=== PATIENT | male | born 1950 | race Caucasian/White ===

== ENCOUNTER 2020-01-16 06:43 | Outpatient (CLI) | payer MEDICARE, SELFPAY ==
--- NOTE | ~2020-01-16 | MR_ITS ---
EXAMINATION: MR brain/brain stem wo/w con DATE: 01/16/2020 08:03 INDICATION: Unspecified visual disturbance. TECHNIQUE: Magnetic resonance imaging (MRI) of the brain and brainstem was performed without and with 18 mL MultiHance intravenous contrast. Sequences included sagittal and axial T1-weighted FSE, axial diffusion-weighted FS EPI, axial T2*-weighted GRE, axial T2-weighted FLAIR Propeller, and axial T2-we ighted Propeller. Postcontrast sequences included axial and coronal T1-weighted FSE. Apparent diffusi on coefficient (ADC) maps were created. COMPARISON: CT sinuses 05/23/2008 FINDINGS: There are scattered areas of nonspecific increased T2-weighted signal intensity in the cere bral white matter, which is within normal limits for the patient's age. There is no intracranial hemo rrhage, acute infarction, or abnormal intracranial mass lesion. The ventricles are normal in size. Th e orbits are normal. There is mild mucosal thickening in the paranasal sinuses. The mastoid air cells are normal. IMPRESSION: 1. Normal aging brain. Reviewed, dictated and finalized at location A. IMPRESSION: 1. Normal aging brain.
[2020-01-16 07:32] LABS: Estimated Glomerular Filt Rate > 60
== END 2020-01-16 06:44 | disposition home or self-care (01) ==
LOC: ANHIMG 06:54
PROVIDERS: PCP Family Medicine; Visit Provider Physician Assistant
DX: H53.9 Unspecified visual disturbance (principal)
CPT/HCPCS: 36415; 70553; A9577

== ENCOUNTER 2022-05-12 09:37 | Outpatient (CLI) | payer MEDICARE, SELFPAY ==
--- NOTE | 2022-05-12 11:00 | NEURO_ITS ---
Impression: Patient complaining of numbness in right foot. History of right sciatica. 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 # Clinical correlation recommended. Nerve Conduction Studies Anti Sensory Summary Table Stim Site NR Peak (ms) P-T Amp (?V) Site1 Site2 Delta-P (ms) Dist (cm) Matteo (m/s) Right Sup Fibular Anti Sensory (Ant Lat Mall) 14 cm 4.5 4.6 14 cm Ant Lat Mall 4.5 16.0 36 Right Sural Anti Sensory (Lat Mall) Calf 4.2 7.6 Calf Lat Mall 4.2 16.0 38 Motor Summary Table Stim Site NR Onset (ms) O-P Amp (mV) Site1 Site2 Delta-0 (ms) Dist (cm) Matteo (m/s) Right Peroneal Motor (Vastus Med) Ankle 5.6 0.5 Popit Ankle 11.4 44.0 39 Popit 17.0 0.3 B Fib Ankle 11.5 34.0 30 B Fib 17.1 0.2 Right Tibial Motor (Abd Ketn Brev) Ankle 5.0 5.4 Knee Ankle 10.7 39.5 37 Knee 15.7 4.1 F Wave Studies NR F-Lat (ms) L-R F-Lat (ms) Right Peroneal (Mrkrs) (EDB) DISPERSED RESPONSE NR Right Tibial (Mrkrs) (Abd Hallucis) 58.49 EMG Side Muscle Nerve Root Ins Act Fibs Amp Dur Recrt Comment Right AntTibialis Dp Br Fibular L4-5 Nml Nml Nml Nml Nml Right Gastroc Tibial S1-2 Nml Nml Nml Nml Reduced Right Fibularis Long Sup Br Fibular L5-S1 Nml Nml Nml Nml Nml Right Flex Dig Long Tibial L5-S2 Nml Nml Nml Nml Reduced Right Ext Dig Brev Dp Br Fibular L5, S1 Nml Nml Nml Nml Reduced MTDD
== END 2022-05-12 09:38 | disposition home or self-care (01) ==
LOC: ANHNEURO 09:39
PROVIDERS: PCP Family Medicine; Visit Provider Family Medicine
DX: R20.8 Other disturbances of skin sensation (principal); G57.81 Other specified mononeuropathies of right lower limb
CPT/HCPCS: 95886; 95908

== ENCOUNTER → 2022-06-10 07:09 | Outpatient (CLI) | payer MEDICARE, SELFPAY ==
--- NOTE | ~2022-06-10 | MR_ITS ---
EXAMINATION: MR lumbar spine wo con DATE: 06/10/2022 07:37 INDICATION: Right foot numbness. TECHNIQUE: Magnetic resonance imaging (MRI) of the lumbar spine was performed without intravenous con trast. Sequences included sagittal T2-weighted FSE, sagittal T2-weighted FS FSE, sagittal T1-weighted FSE, and axial T2-weighted FSE. COMPARISON: None FINDINGS: There is 10 degrees levoscoliosis of lumbar spine. There are Schmorl's nodes at multiple le vels. There is moderately decreased disc height at L3-L4 and L4-L5 and mildly decreased disc height a t L5-S1. The distal spinal cord signal intensity is normal. The conus medullaris is at L1. 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 The following disc levels are specifically discussed: L1-L2: The disc is bulging. There is moderate bilateral facet joint osteoarthritis. There is mild stewart ateral neural foraminal stenosis. There is mild central canal stenosis. L2-L3: The disc is bulging. There is mild bilateral facet joint osteoarthritis. There is mild bilater al neural foraminal stenosis. There is mild central canal stenosis. L3-L4: The disc is bulging and has an annular fissure. There is mild bilateral facet joint osteoarthr itis. There is moderate right and mild left neural foraminal stenosis. There is mild central canal st enosis. L4-L5: The disc is bulging and has an annular fissure. There is moderate bilateral facet joint osteoa rthritis. There is moderate bilateral neural foraminal stenosis. There is mild central canal stenosis . L5-S1: The disc is bulging. There is severe bilateral facet joint osteoarthritis. There is mild bilat eral neural foraminal stenosis. There is mild central canal stenosis. IMPRESSION: 1. Moderate lumbar spondylosis. 2. Lumbar levoscoliosis. Reviewed, dictated and finalized at location A. AND SKIN CLASSER
== END ==
PROVIDERS: PCP Family Medicine; Visit Provider Family Medicine
DX: R20.0 Anesthesia of skin (principal); M47.26 Other spondylosis with radiculopathy, lumbar region; M41.9 Scoliosis, unspecified
CPT/HCPCS: 72148

== ENCOUNTER 2022-10-06 09:53 | Day surgery (SDC) | payer MEDICARE, SELFPAY ==
[2022-10-04 08:35] VITALS: BMI 27.0
--- NOTE | 2022-10-06 07:28 | WPDHPUPDATE1 ---
History and Physical Update Update Date/Time: 10/06/22 07:28 History and Physical has been reviewed, including an updated exam of the patient. There are NO changes in the patient's condition. Risks, benefits, and alternatives have been discussed and questions answered. Patient agrees to proceed with procedure.
[2022-10-06 10:26] VITALS: BP 125/86; PULSE 87; RESP 15; TEMP 37.2; O2SAT 96
[2022-10-06] MEDS: TETRACAINE HCL 0.5% OPHTH SOLN 4 ML BTL 1 DROP AFFCTD EYE ×3 (10:29→10:39)
[2022-10-06 10:34] VITALS: BMI 28.5
[2022-10-06] MEDS: BRIMONIDINE TARTRATE 0.2% OP SOLN 5 ML BTL 1 DROP AFFCTD EYE (11:02)
--- NOTE | 2022-10-06 11:43 | W.PM.PROC2 ---
Procedure Note - Detailed Date of Procedure 10/06/22 Pre-op Diagnosis Posterior Capsular Opacification Left Eye Post-op Diagnosis Same Procedure Performed YAG Laser Capsulotomy [LEFT] eye Surgeon Porter Medina MD Anesthesia Other (Topical) Description of Procedure After appropriate discussion, consent and topical anesthesia, the patient was placed in front of the laser. All settings were checked. The laser procedure was then performed. The patient tolerated the procedure well. Power Level: [4.0mJ] Number of Pulses: 15 Complications None Condition Stable Disposition Same day
== END 2022-10-06 11:10 | disposition home or self-care (01) ==
PROVIDERS: PCP Family Medicine; Visit Provider Student in an Organized Health Care Education/Training Program
PROC: (CPT 66821; principal; 2022-10-06 10:40)
DX: H26.492 Other secondary cataract, left eye (principal)
CPT/HCPCS: 66821

== ENCOUNTER 2022-10-27 08:32 | Day surgery (SDC) | payer MEDICARE, SELFPAY ==
[2022-10-25 10:00] VITALS: BMI 27.0
--- NOTE | 2022-10-27 08:09 | WPDHPUPDATE1 ---
History and Physical Update Update Date/Time: 10/27/22 08:09 History and Physical has been reviewed, including an updated exam of the patient. There are NO changes in the patient's condition. Risks, benefits, and alternatives have been discussed and questions answered. Patient agrees to proceed with procedure.
--- NOTE | 2022-10-27 09:56 | WPDANESEPPF ---
Anes - Initial Pre Proc Eval Procedure: Operation Date: 10/27/22 10:30 Proposed Procedures p Cataract Extraction with Lens Implant-Right Eye - Porter Medina MD Date/Time: 10/27/22 09:56 Surgeon: Porter Medina MD Pre Op Diagnosis: Age Related Nuclear Cataract Right Eye Patient Data Age: 72 Gender: M Height: 1.8 m Weight: 88 kg Allergies Allergy/AdvReac Type Severity Reaction Status Date / Time No Known Allergies Allergy Verified 10/25/22 08:49 Home Medications Medication Instructions Recorded Confirmed Type aspirin 81 mg tablet,delayed 81 mg PO DAILY 01/04/20 10/25/22 History release (Aspir-) atorvastatin 20 mg tablet 20 mg PO DAILY 01/04/20 10/25/22 History lisinopril 20 mg tablet 20 mg PO DAILY 01/04/20 10/25/22 History omeprazole 20 mg capsule,delayed 20 mg PO DAILY 01/04/20 10/25/22 History release Patient hx anesthesia problems: none Family hx anesthesia problems: none Results Review: All pre-operative results and documents have been reviewed as part of the pre-operative evaluation. [facility] Past Medical History Medical History (Updated 10/27/22 @ 09:58 by Asher Mera MD) Anxiety Atherosclerotic heart disease of [place] coronary artery with other forms of angina pectoris Back Pain Barretts esophagus Essential (primary) hypertension Ischemic cardiomyopathy Metabolic syndrome Mixed hyperlipidemia Overweight (BMI 25.0-29.9) Prediabetes Surgical History Surgical History H/O knee surgery (~2018) R TKA H/O neck surgery (~2017) ACDIF S/P CABG x 4 (~10/2015) Family History Family History Father Family history of cardiovascular disease Sibling Family history of cardiovascular disease Social History Social History Smoking status: Never smoker Second hand tobacco smoke exposure: No Smoking end date: 05/30/92 Alcohol intake: current Substance use: never Substance use type: does not use Living arrangements: with family Spiritual care concerns: No Anes - Eval Final PreProcedure Day of Procedure 10/27/22 09:56 Patient weight: overweight Heart: regular rate and rhythm Lungs: clear to auscultation and normal air movement Airway: Mallampati scale class II Neurological: alert and oriented Last oral intake: >/= 8 hours ASA classification: III Emergent: no Anesthetic plan: proceed Anesthesia type and monitoring: monitored anesthesia care Results Review: All pre-operative results and documents have been reviewed as part of the pre-operative evaluation. Informed Consent: The patient's anesthetic plan and its attendant risks and benefits were discussed with the patient/family/POA. Questions were solicited and answers provided to the satisfaction of the patient/family/POA.
[2022-10-27 10:00] VITALS: BP 124/96; PULSE 73; RESP 20; TEMP 37.1; O2SAT 96
[2022-10-27] MEDS: OFLOXACIN 0.3% OPHTH SOLN 5 ML BTL 1 DROP AFFCTD EYE (10:30)
[2022-10-27] MEDS: TETRACAINE HCL 0.5% OPHTH SOLN 4 ML BTL 1 DROP AFFCTD EYE ×3 (10:30→10:40)
[2022-10-27] MEDS: LIDOCAINE HCL 2% JELLY 5 ML TUBE 1 APPLIC AFFCTD EYE (10:50)
[2022-10-27] MEDS: HOME MEDICATION 1 EACH AFFCTD EYE (11:29)
[2022-10-27] MEDS: NEOMYCIN/POLYMYXIN/DEXAMETH OP OINT 3.5 GM TUBE 1 APPLIC AFFCTD EYE (11:29)
[2022-10-27] MEDS: LIDOCAINE HCL 1% PF INJ 5 ML VIAL 1 ML INTRAOCULA (11:29)
[2022-10-27 11:37] VITALS: BP 132/72; PULSE 67; RESP 16; O2SAT 99
[2022-10-27] MEDS: acetaZOLAMIDE TAB 250 MG TABLET PO (11:47)
--- NOTE | 2022-10-27 11:53 | WPDANESPN ---
Anes - Prog Note Post-Op Date/Time: 10/27/22 11:53 Cardiovascular status: normal Respiratory status: normal Airway patency: baseline Mental status: baseline Post-Op hydration status: normal Vital Signs: Last Vital Signs Temp 37.1 C 10/27/22 10:00 Pulse 67 10/27/22 11:37 Resp 16 10/27/22 11:37 BP 132/72 10/27/22 11:37 Pulse Ox 99 10/27/22 11:37 O2 Del Method Room Air 10/27/22 11:37 Pain Score (VAS): 0 Post-procedural complaints: none Patient Feedback: Patient satisfied with anesthetic care.
--- NOTE | 2022-10-27 12:03 | P.OP_ITS ---
Procedure Note - Detailed Date of Procedure 10/27/22 Pre-op Diagnosis 1) Age Related Nuclear Cataract Right Eye 2) Miotic pupillary cyst Post-op Diagnosis Same Procedure Performed Complex Cataract Extraction (by Phacoemulsification) and lntraocular Lens Implant Surgeon Porter Medina MD Anesthesia MAC Description of Procedure The eye was anesthetized with topical 0.75% bupivacaine. After intravenous sedation and placement of monitors, the patient was prepped and draped in the usual sterile manner. A lid speculum was placed. A paracentesis was made, and preservative free 1% lidocaine was instilled in the anterior chamber. The anterior chamber was then filled with Viscoat viscoelastic and a malyugin ring w as placed. A antonio keratome was used to create the wound. Continuous tear anterior capsulotomy was performed. The lens was hydro dissected before being removed with phacoemulsification. The remaining lenticular cortex was removed with aspiration. The capsular bag was polished and filled with viscoelastic material. An intraocular lens was chosen, inspected, irrigated and placed within the capsular bag where it was seen to be centered and stable. The Malyugin ring was removed and viscoelastic material was aspirated. The wound was closed and found to be watertight. Ciloxan drops were placed in the eye. The speculum was removed. A Chen shield was applied. The patient tolerated the procedure well and left the operating room in satisfactory condition. Implants See chart Complications None Condition Stable Disposition Same day
== END 2022-10-27 12:00 | disposition home or self-care (01) ==
PROVIDERS: PCP Family Medicine; Visit Provider Student in an Organized Health Care Education/Training Program
PROC: (CPT 66983; principal; 2022-10-27 10:30)
DX: H25.11 Age-related nuclear cataract, right eye (principal)
CPT/HCPCS: 66982

== ENCOUNTER → 2023-03-04 11:05 | Outpatient (CLI) | payer MEDICARE, SELFPAY ==
--- NOTE | ~2023-03-04 | XR_ITS ---
Clinical Indication: Cough PA and lateral views of the chest: Comparison: None Findings: The lungs are clear, without evidence of focal consolidation or pleural effusion. Cardiome diastinal silhouette is unremarkable, status post median sternotomy. Bones and soft tissues are unrem arkable. Impression: Clear lungs. Reviewed, dictated and finalized at location . Impression: Clear lungs.
== END ==
PROVIDERS: PCP Family Medicine; Visit Provider Family Medicine
DX: R05.9 Cough, unspecified (principal)
CPT/HCPCS: 71046

== ENCOUNTER 2023-03-17 00:15 | Day surgery (SDC) | payer MEDICARE, SELFPAY ==
[2023-03-16 13:50] VITALS: BMI 26.6
[2023-03-17] VITALS (10 sets, daily range): BP systolic 111–135; BP diastolic 68–100; PULSE 8–73; RESP 11–20; TEMP 36.7–36.8; O2SAT 95–98; BMI 26.6
[2023-03-17 07:42] LABS: Anion Gap 4 mmol/L (8-16); Blood Urea Nitrogen 26 mg/dL (9-20); Calcium 9.2 mg/dL (8.4-10.2); Carbon Dioxide 26 mmol/L (22-30); Chloride 104 mmol/L (98-107); Estimated CRCL calculation 63 ml/min; Estimated Glomerular Filt Rate > 60; Glucose 113 mg/dL (65-110); Potassium 4.2 mmol/L (3.4-5.0); Sodium 134 mmol/L (137-145)
[2023-03-17 07:49] LABS: INR 0.9; Prothrombin Time 12.7 Seconds (11.1-14.7)
[2023-03-17 07:53] LABS: Basophils Percent Auto 0.6 % (0.2-1.2); Eosinophils Absolute Auto 0.3 K/mm3 (0-0.3); Eosinophils Percent Auto 4.1 % (0-4.4); Hemoglobin 14.5 g/dL (14.0-18.0); Immature Granulocyte Absolute 0.01 K/mm3 (0.00-0.031); Immature Granulocyte Percent A 0.2 % (0-0.5); Lymphocytes Absolute Auto 1.52 K/mm3 (0.9-3.2); Lymphocytes Percent Auto 24.6 % (18.3-44.2); Mean Corpuscular Hemoglobin 30.9 pg (26-34); Mean Corpuscular Volume 93.8 fl (80-100); Mean Platelet Volume 9.6 fl (7.4-10.4); Monocytes Absolute Auto 0.7 K/mm3 (0.1-0.6); Monocytes Percent Auto 11.7 % (2.6-8.5); Neutrophils Absolute Auto 3.6 K/mm3 (1.3-6.7); Neutrophils Percent Auto 58.8 % (45.5-73.1); Platelet Count Result 201 k/mm3 (150-375); Red Blood Count 4.69 M/mm3 (4.6-6.20); Red Cell Distribution Width 13.7 % (11.5-14.5); White Blood Count 6.2 K/mm3 (4.5-10.0)
--- NOTE | 2023-03-17 09:45 | WPDMODSED ---
Moderate Sedation Note-Pt Data Patient Data Diagnosis: Coronary artery disease with previous bypass grafting recent symptoms compatible with angina Present Complaint: exertional chest pain Procedure to be performed/Plan: left heart catheterization with KP and vein graft angiography Allergies Allergy/AdvReac Type Severity Reaction Status Date / Time No Known Allergies Allergy Verified 03/17/23 07:21 Home Medications Medication Instructions Recorded Confirmed Type aspirin 81 mg tablet,delayed 81 mg PO DAILY 01/04/20 03/16/23 History release (Aspir-) lisinopril 20 mg tablet 20 mg PO DAILY 01/04/20 03/16/23 History omeprazole 20 mg capsule,delayed 20 mg PO DAILY 01/04/20 03/16/23 History release rosuvastatin 40 mg tablet 40 mg PO DAILY 03/16/23 03/16/23 History Current Medications: Active Medications Sodium Chloride (Normal Saline Iv) 500 mls @ 100 mls/hr IV CONT .Q5H JEANNINE Sedation/Anesthesia: No previous sedation/anesthesia problems (including family history). [facility] Past Medical History Medical History Anxiety Atherosclerotic heart disease of [place] coronary artery with other forms of angina pectoris Back Pain Barretts esophagus Essential (primary) hypertension Ischemic cardiomyopathy Metabolic syndrome Mixed hyperlipidemia Overweight (BMI 25.0-29.9) Prediabetes Surgical History Surgical History H/O knee surgery (~2018) R TKA H/O neck surgery (~2018) ACDIF S/P CABG x 4 (~10/2015) Family History Family History Father Family history of cardiovascular disease Sibling Family history of cardiovascular disease Social History Social History Smoking status: Former smoker Tobacco type: cigarettes Second hand tobacco smoke exposure: No Smoking end date: 05/30/92 Alcohol intake: current Drinks per week: 0 Alcohol use details: maybe twice a year Substance use: never Substance use type: does not use Living arrangements: with family Spiritual care concerns: No Mod Sed Physical Exam Physical Exam Pre Procedural Exam: Normal: Appearance, Nose, Neck, Throat, Airway, Lungs, Heart Size, Heart Rate, Heart Rhythm, Neuro Exam and Extremities Hours since solid foods: 12 Hours since liquid intake: 12 Mallampati Classification: class II Internal Medicine - PN: Obj Da Vital Signs Vital Signs: Vital Signs - 24 hr 03/17/23 07:23 Temperature 36.8 C Pulse Rate 73 Respiratory Rate 16 Blood Pressure 135/100 H Pulse Oximetry 97 Oxygen Delivery Room Air Meds/Results Medications: Active Medications Generic Name Dose Route Start Last Admin Trade Name Freq PRN Reason Stop Dose Admin Sodium Chloride 500 mls @ 100 mls/hr 03/17/23 07:00 Normal Saline Iv IV CONT .Q5H JEANNINE Labs 03/17/23 07:21 03/17/23 07:21 Labs: Laboratory Results - last 24 hr 03/17/23 07:21 WBC 6.2 RBC 4.69 Hgb 14.5 Hct 44.0 MCV 93.8 MCH 30.9 MCHC 33.0 RDW 13.7 Plt Count 201 MPV 9.6 Immature Gran % (Auto) 0.2 Neut % (Auto) 58.8 Lymph % (Auto) 24.6 Bradford % (Auto) 11.7 H Eos % (Auto) 4.1 Baso % (Auto) 0.6 Lymph # (Auto) 1.52 Bradford # (Auto) 0.7 H Eos # (Auto) 0.3 Baso # (Auto) 0.0 Abs Immat Gran (auto) 0.01 Absolute Neuts (auto) 3.6 Absolute Nucleated RBC 0.0 Nucleated RBC % 0.0 PT 12.7 INR 0.9 Sodium 134 L Potassium 4.2 Chloride 104 Carbon Dioxide 26 Anion Gap 4 L BUN 26 H Creatinine 1.00 Estim Creat Clear Calc 63 Estimated GFR > 60 Glucose 113 H Calcium 9.2 ASA Classification/Sedation ASA Classification/Sedation ASA Class: III Emergent: No Risks: Risks, benefits and alternatives explained and patient/family accepted plan for sedation. Patient re-iris
--- NOTE | 2023-03-17 09:47 | WPDCARDPROC ---
Cardiac Cath Procedure Note Date of procedure:: 03/17/23 Performing physician:: Basim Brito MD Indication:: exertional angina Brief clinical history:: this is a 72-year-old man with coronary disease previous coronary bypass grafting in 2016. He is reporting symptoms compatible with exertional angina of recent onset Procedure Procedure performed:: left ventriculogram coronary angiography KP graft angiography saphenous vein graft angiography Sedation/Medication given:: fentanyl 50 mg Versed 2 mg case start time 9:09 a.m. case end time 9:39 a.m. sedation provided by Francisca Mcfarlane RN, trained observer Access site:: right femoral artery Estimated blood loss:: 25 cc Procedure note:: patient was brought to the cardiac catheterization lab in the postabsorptive state where the right femoral triangle was prepared and draped in the usual fashion. Anesthesia was provided with 1% lidocaine infiltrated locally. Using the modified Seldinger technique a 5 [place] sheath was placed into the right femoral artery. Left heart catheterization was then carried out. I used a 5 [place] angled pigtail catheter to document left-sided hemodynamics, pullback pressures across the aortic valve and inject left ventriculogram in the are AO projection. Following this a standard 5 [place] FL4 catheter was used to engage and inject the left coronary artery in multiple projections following this a 5 [place] JR4 catheters used to engage and inject the right coronary artery as well as the saphenous vein graft to the RCA and to the circumflex. Following this a 5 [place] sheath IM catheter was used to selectively engage and inject the internal mammary graft as well as non selectively inject the vein graft to the diagonal. Cineangiograms were then reviewed in detail and the case was terminated. Following this manual pressure was used to remove the sheath in the cardiac label press operator. Procedure was well tolerated and uncomplicated there was no evidence of groin hematoma at the conclusion of the case. Findings:: Hemodynamics: Central aortic pressure is 110 over 58 left ventricle 110 over is 0 end-diastolic 14. There is no gradient on pullback across the aortic valve. left ventricle: The LV appears to be normal in size the inferior segment is hypodynamic but not akinetic the remainder of the LV contracts well the global ejection fraction is 50-55% by visual estimation. The left main coronary artery is medium in caliber and is patent. The LAD is very small and diffusely diseased. There is subtotal proximal occlusion of the LAD and become 3 small angiographically and under filled after this. There is distal competitive filling seen in the LAD from the KP graft. There are 2 septal perforating branches that arise from the LAD prior to the subtotal occlusion. The circumflex is a small diffusely diseased artery. There is a small patent ramus intermedius branch and then a very small diminutive OM1 branch. Following the small vessels the circumflex is occluded. The right coronary artery is moderate caliber and dominant to the posterior circulation. The right coronary artery is 100% occluded between the 2nd and 3rd portion. There is no disease of significance proximal to the occlusion the acute marginal right ventricular branch is patent. Selective injection of the left internal mammary artery shows it to be a moderate caliber segment of KP without any significant angiographic abnormalities. It anastomosis to the mid LAD is patent it fills the LAD from the apex back to the point of proximal high-grade disease. There was DEV 3 flow in the LAD non selective injection of the vein graft to the diagonal shows it to be a medium caliber segment of vein it is patent without any degenerative changes. It anastomosis to the diagonal is patent and fills the diagonal branch with DEV 3 flow the diagonal is small to medium in size selective inje
== END 2023-03-17 15:20 | disposition home or self-care (01) ==
PROVIDERS: PCP Family Medicine; Visit Provider Specialist
PROC: 4A023N7 Measurement of Cardiac Sampling and Pressure, Left Heart, Percutaneous Approach (ICD-10-PCS; CPT 93459; principal; 2023-03-17 08:30)
DX: I25.10 Atherosclerotic heart disease of native coronary artery without angina pectoris (principal); I25.5 Ischemic cardiomyopathy; I10 Essential (primary) hypertension; R73.03 Prediabetes; I25.2 Old myocardial infarction; Z82.49 Family history of ischemic heart disease and other diseases of the circulatory system; R06.02 Shortness of breath; E78.00 Pure hypercholesterolemia, unspecified; K57.92 Diverticulitis of intestine, part unspecified, without perforation or abscess without bleeding; Z87.891 Personal history of nicotine dependence; Z79.82 Long term (current) use of aspirin; F41.9 Anxiety disorder, unspecified; Z95.1 Presence of aortocoronary bypass graft
CPT/HCPCS: 36415; 80048; 85025; 85610; 93459; C1769; C1887; C1894; J1644; J2250; J3010; J7040

== ENCOUNTER 2023-12-09 15:20 | Outpatient (CLI) | payer MEDICARE, SELFPAY ==
--- NOTE | ~2023-12-09 | XR_ITS ---
EXAMINATION: XR chest 2V DATE: 12/09/2023 15:32 INDICATION: Cough TECHNIQUE: PA and lateral views of the chest were obtained. COMPARISON: Chest radiograph dated 03/04/2023 FINDINGS: Unchanged elevation of the left hemidiaphragm. Lungs are clear with no focal airspace opacities, pulm onary edema, pleural effusion or pneumothorax. Heart size is normal. Median sternotomy wires and medi astinal surgical clips are seen, likely from prior coronary artery bypass grafting. Moderate thoracic spondylosis. IMPRESSION: 1. Chronic elevation of left hemidiaphragm. No acute cardiopulmonary disease. Reviewed, dictated and finalized at location A.
== END 2023-12-09 15:21 | disposition home or self-care (01) ==
LOC: ANHIMG 15:20
PROVIDERS: PCP Family Medicine; Visit Provider Family Medicine
DX: J98.6 Disorders of diaphragm (principal); R05.9 Cough, unspecified
CPT/HCPCS: 71046

== ENCOUNTER 2025-02-19 15:41 | Outpatient (CLI) | payer MEDICARE, SELFPAY ==
--- NOTE | ~2025-02-19 | XR_ITS ---
CHEST RADIOGRAPH, PA AND LATERAL CLINICAL HISTORY: cough 4-5 mos, non smoker CABG 2016 . COMPARISON: 12/09/2023 TECHNIQUE: PA and lateral views of the chest. FINDINGS Sternal wires and mediastinal clips are identified, the wires are midline and intact. The remainder of the cardiomediastinal silhouette is otherwise unremarkable. Elevation of the left hemidiaphragm with adjacent compressive atelectasis. The remainder of the lungs are clear. IMPRESSION: Redemonstration of elevation of the left hemidiaphragm with adjacent compressive atelectasis. The remainder of the lungs are clear. If clinical suspicion persists, cross-sectional imaging (noncontrast enhanced CT examination of the c hest) is suggested for further evaluation. Reviewed, dictated and finalized at location A. IMPRESSION: Redemonstration of elevation of the left hemidiaphragm with adjacent compressiv e atelectasis. The remainder of the lungs are clear. If clinical suspicion persists, cross-sectional imaging (noncontrast enhanced C T examination of the chest) is suggested for further evaluation.
== END 2025-02-19 15:42 | disposition home or self-care (01) ==
LOC: GOSHIMG 15:41
PROVIDERS: PCP Internal Medicine Cardiovascular Disease; Visit Provider Family Medicine
DX: J98.6 Disorders of diaphragm (principal); J98.11 Atelectasis
CPT/HCPCS: 71046

== ENCOUNTER 2025-02-26 08:47 | Outpatient (CLI) | payer MEDICARE, SELFPAY ==
--- NOTE | ~2025-02-26 | CT_ITS ---
CT Scan of the Chest without Contrast: Clinical Indication: Cough Technique: Contiguous sections were acquired throughout the chest without intravenous contrast. Dose reduction technique was used on this scan by utilizing automated exposure control and iterative recon struction technique. The dose-length product (DLP) was 349.49 mGy-cm. Findings: There is no evidence of any significant mediastinal, hilar or axillary lymphadenopathy. Coronary elizabeth ry calcifications are present. There is no evidence of pleural or pericardial effusion. There is mild biapical scarring. There is linear left lower lobe scarring. There is probable minimal peripheral chronic interstitial change. Images through the upper abdomen reveal tiny gallstones. Impression: Probable minimal peripheral chronic interstitial change with areas of scarring at the left lower lobe and bilateral lung apices. Cholelithiasis. Reviewed, dictated and finalized at [facility]. Impression: Probable minimal peripheral chronic interstitial change with areas of scarring at the left lower lobe and bilateral lung apices. Cholelithiasis.
== END 2025-02-26 08:48 | disposition home or self-care (01) ==
LOC: GOSHIMG 08:48
PROVIDERS: PCP Family Medicine; Visit Provider Family Medicine
DX: K80.20 Calculus of gallbladder without cholecystitis without obstruction (principal); R05.9 Cough, unspecified
CPT/HCPCS: 71250

== ENCOUNTER 2025-05-03 08:07 | Outpatient (CLI) | payer MEDICARE, SELFPAY ==
--- OUTSIDE RECORDS SUMMARY | 2025-05-03 08:13 | XMS_ITS | Patient Health Record ---
Author Organization [facility] Address [address] [place], [place] [id number] Care Team Providers Care Publications Editor Name Role Phone Adrianna Whitt Unavailable Unavailable Reason For Referral No Information Plan Of Treatment No Information Insurance Providers Payer Name Payer Address Payer Phone Subscriber Number Group Number Insured Name Patient Relationship to Insured Coverage Start Date Coverage End Date Medicare Part B [place] [address] [place] [phone] [id number] JUDD RIVERA Self - patient is the insured [facility] ([facility]) ATTN CLAIMS [address] [place] [address] [id number] JUDD RIVERA Self - patient is the insured
--- OUTSIDE RECORDS SUMMARY | 2025-05-03 08:13 | XMS_ITS | Encounter Summary ---
Author Organization [facility] Facility Care Team Providers Care Contracting Engineer Name Role Phone Ronnie Solano MD Primary Care Provider + [phone] Ronnie Solano MD Primary Care Provider + [phone] Adrianna Whitt DO Primary Care Provider + [phone] Encounter Details Date Type Department Care Team (Latest Contact Info) Description 12/17/2015 Orders Only [facility] ProviderAmanda MD [address] [place] [address] Social History Tobacco Use Types Packs/Day Years Used Date Smoking Tobacco: Never Assessed Sex and Gender Information Value Date Recorded Sex Assigned at Not on file Legal Sex Male 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 Historical Provider [facility] DON TY Final Result documented in this encounter Visit Diagnoses Not on filedocumented in this encounter Care Teams Contracting Engineer Relationship Specialty Start Date End Date Ronnie Solano MD [address] [place] [address] PCP - General 10/29/16 03/25/20 Ronnie Solano MD [address] [place] [id number] PCP - General 08/12/16 10/28/16 Adrianna Whitt DO [address] [place] [address] PCP - General Family Medicine 03/26/20 documented as of this encounter
--- OUTSIDE RECORDS SUMMARY | 2025-05-03 08:13 | XMS_ITS | Encounter Summary ---
Author Organization [facility] Facility Care Team Providers Care Shredder/Granulator Operator Name Role Phone Ronnie Solano MD Primary Care Provider + [phone] Ronnie Solano MD Primary Care Provider + [phone] Adrianna Whitt DO Primary Care Provider [phone]- [phone] Encounter Details Date Type Department Care Team (Latest Contact Info) Description 12/19/2015 Orders Only [facility] ProviderAmanda MD [address] [place] [address] Social History Tobacco Use Types Packs/Day Years Used Date Smoking Tobacco: Never Assessed Sex and Gender Information Value Date Recorded Sex Assigned at Not on file 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 Gender Identity Not on file Sexual Orientation Not on file documented as of this encounter Plan of Treatment Not on file documented as of this encounter Procedures Procedure Name Priority Date/Time Associated Diagnosis Comments SCAN - LABS 12/19/2015 12:00 AM CDT CARDIOLOGY REPORT 12/19/2015 12: 00 AM CDT CARDIOLOGY REPORT 12/19/2015 12: 00 AM CDT CARDIOLOGY REPORT 12/19/2015 12: 00 AM CDT CARDIOLOGY REPORT 12/19/2015 12: 00 AM CDT CARDIOLOGY REPORT 12/19/2015 12: 00 AM CDT documented in this encounter Results * SCAN - LABS (12/19/2015 12:00 AM CDT) Narrative 12/19/2015 12:00 AM CDT Ordered by an unspecified provider. Result [facility] Provider Final Res ult * CARDIOLOGY REPORT (12/19/2015 12:00 AM CDT) Anatomical Region Laterality Modality Other Narrative 12/19/2015 12:00 AM CDT Ordered by an unspecified provider. Result [facility] Provider CV CARDIAC SERVICES PROCE DURES Final Result * CARDIOLOGY REPORT (12/19/2015 12:00 AM CDT) Anatomical Region Laterality Modality Other Narrative 12/19/2015 12:00 AM CDT Ordered by an unspecified provider. Result [facility] Provider CV CARDIAC SERVICES PROCE DURES Final Result * CARDIOLOGY REPORT (12/19/2015 12:00 AM CDT) Anatomical Region Laterality Modality Other Narrative 12/19/2015 12:00 AM CDT Ordered by an unspecified provider. Result [facility] Provider CV CARDIAC SERVICES PROCE DURES Final Result * CARDIOLOGY REPORT (12/19/2015 12:00 AM CDT) Anatomical Region Laterality Modality Other Narrative 12/19/2015 12:00 AM CDT Ordered by an unspecified provider. Result [facility] Provider CV CARDIAC SERVICES PROCE DURES Final Result * CARDIOLOGY REPORT (12/19/2015 12:00 AM CDT) Anatomical Region Laterality Modality Other Narrative 12/19/2015 12:00 AM CDT Ordered by an unspecified provider. Result [facility] Provider CV CARDIAC SERVICES PROCE DURES Final Result documented in this encounter Visit Diagnoses Not on filedocumented in this encounter Care Teams Shredder/Granulator Operator Relationship Specialty Start Date End Date Ronnie Solano MD [address] [place] [address] PCP - General 10/29/16 03/25/20 Ronnie Solano MD [address] [place] [address] PCP - General 08/12/16 10/28/16 Adrianna Whitt DO [address] [place] [address] PCP - General Family Medicine 03/26/20 documented as of this encounter
--- OUTSIDE RECORDS SUMMARY | 2025-05-03 08:13 | XMS_ITS | Encounter Summary ---
Author Organization [facility] Address [address] [facility] [address] [place] [address] Care Team Providers Care Intern Brand Name Role Phone Ronnie Solano MD Primary Care Provider + [phone] Ronnie Solano MD Primary Care Provider + [phone] Adrianna Whitt DO Primary Care Provider [phone]- [phone] Encounter Details Date Type Department Care Team (Late st Contact Info) Description 08/12/2016 Orders Only [facility] ProviderAmanda MD [address] [place] [address] Social History Tobacco Use Types Packs/Day Years Used Date Smoking Tobacco: Former Alcohol Use Standard Drinks/Week Comments No 0 (1 standard drink = 0.6 oz pur e alcohol) Sex and Gender Information Value Date Recorded Sex Assigned at Not on file 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 Historical Provider [facility] CARDIAC SERVICES DON TY Final Result * CARDIOLOGY REPORT (08/12/2016) Anatomical Region Laterality Modality Other Narrative 08/12/2016 Ordered by an unspecified provider. us Historical Provider [facility] C[facility] DON TY Final Result documented in this encounter Visit Diagnoses Not on filedocumented in this encounter Care Teams Intern Brand Relationship Specialty Start Date End Date Ronnie Solano MD [address] [place] [address] PCP - General 10/29/16 03/25/20 Ronnie Solano MD [address] [place] [address] PCP - General 08/12/16 10/28/16 Adrianna Whitt DO [address] [place] [address] PCP - General Family Medicine 03/26/20 documented as of this encounter
--- OUTSIDE RECORDS SUMMARY | 2025-05-03 08:13 | XMS_ITS | Encounter Summary ---
Author Organization [facility] Address [address] [facility] [address] [place] [address] Care Team Providers Care Rigging Up Man Name Role Phone Ronnie Solano MD Primary Care Provider + [phone] Ronnie Solano MD Primary Care Provider + [phone] Adrianna Whitt DO Primary Care Provider [phone]- [phone] Encounter Details Date Type Department Care Team (Late st Contact Info) Description 11/16/2015 Orders Only [facility] ProviderAmanda MD [address] [place] [address] Social History Tobacco Use Types Packs/Day Years Used Date Smoking Tobacco: Never Assessed Sex and Gender Information Value Date Recorded Sex Assigned at Not on file 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 Historical Provider [facility] CARDIAC SERVICES PROCE DURES Final Result * CARDIOLOGY REPORT (11/16/2015) Anatomical Region Laterality Modality Other Narrative 11/16/2015 Ordered by an unspecified provider. Historical Provider [facility] CARDIAC SERVICES PROCE DURES Final Result documented in this encounter Visit Diagnoses Not on filedocumented in this encounter Care Teams Rigging Up Man Relationship Specialty Start Date End Date Ronnie Solano MD [address] [place], [place] [id number] PCP - General 10/29/16 03/25/20 Ronnie Solano MD [address] [place] [address] PCP - General 08/12/16 10/28/16 Adrianna Whitt DO [address] [place] [address] PCP - General Family Medicine 03/26/20 documented as of this encounter
--- OUTSIDE RECORDS SUMMARY | 2025-05-03 08:13 | XMS_ITS | Encounter Summary ---
Author Organization [facility] Address [address] [facility] [address] [place] [address] Care Team Providers Care Studio Camera Operator Name Role Phone Ronnie Solano MD Primary Care Provider [phone] Adrianna Whitt DO Primary Care Provider [phone]- [phone] Encounter Details Date Type Department Care Team (Late st Contact Info) Description 11/22/2016 Orders Only [facility] ProviderAmanda MD [address] [place] [address] Social History Tobacco Use Types Packs/Day Years Used Date Smoking Tobacco: Former Alcohol Use Standard Drinks/Week Comments No 0 (1 standard drink = 0.6 oz pur e alcohol) Sex and Gender Information Value Date Recorded Sex Assigned at Not on file 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 Historical Provider [facility] C[facility] DON TY Final Result documented in this encounter Visit Diagnoses Not on filedocumented in this encounter Care Teams Studio Camera Operator Relationship Specialty Start Date End Date Ronnie Solano MD [address] [place] [address] PCP - General 10/29/16 03/25/20 Adrianna Whitt DO [address] [place] [address] PCP - General Family Medicine 03/26/20 documented as of this encounter
--- OUTSIDE RECORDS SUMMARY | 2025-05-03 08:13 | XMS_ITS | Encounter Summary ---
Author Organization [facility] Address [address] [place] [address] Phone Care Team Providers Care Minister Name Role Phone Adrianna Whitt DO Primary Care Provider [phone]- [phone] Encounter Details Date Type Department Care Team (Late st Contact Info) Description 05/15/2024 Orders Only [facility] Medicine Ophthalmology [address] [facility] 6th [place] [address] Bandar Soto MD [address] [facility] [address] [place] [address] Ptosis of both eyelids (Primary Dx) Social History Tobacco Use Types Packs/Day Years Used Date Smoking Tobacco: Former Cigarettes Q uit: 05/30/1992 Smokeless Tobacco: Never Alcohol Use Standard Drinks/Week Comments Yes 1 (1 standard drink = 0.6 oz pur e alcohol) occassionally AUDIT-C Answer Date Recorded Q1: How often do you have a drink containing alcohol? Never 06/20/2023 Q2: How many drinks containi ng alcohol do you have on a typical day when you are drinking? Patient does not drink Q3: How often do you have si x or more drinks on one occasion? Never 06/20/2023 Personal Safety Answer Date Recorded Have you ever been in or are you currently in a harmful physical or emotional relationship or is someone making you feel afraid or unsafe? 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 Cooperation was good. Reliability was good. Left Eye Fixation was good. Cooperation was good. Reliability was good. Notes Findings: Right eye (OD): Untaped superior meridian at 12 degrees and taped superior meridian at 50 degrees. Left eye (OS): Untaped superior meridian at 20 degrees and taped superior meridian at 51 degrees. Impression: Significant improvement in superior visual field with elevation bilaterally. us Bandar Soto MD OPHTH VISUAL FIELD Final Result documented in this encounter Visit Diagnoses Diagnosis Ptosis of both eyelids- Primary Unspecified ptosis of eyelid documented in this encounter Care Teams Minister Relationship Specialty Start Date End Date Adrianna Whitt DO PCP - General Family Medicine 03/26/20 documented as of this encounter
--- OUTSIDE RECORDS SUMMARY | 2025-05-03 08:13 | XMS_ITS | Clinical Summary ---
Author Organization [facility] [address] Address [address] [place] [address] Care Team Providers Care Carbon Paper Interleafer Name Role Phone Adrianna Whitt DO Primary Care Provider [phone]- [phone] Allergies No known active allergies Medications aspirin 81 mg tabletIndications :prevention of thrombosis Take 1 tablet (81 mg total) by mouth every morning Active nitroglycerin (NITROSTAT) 0.4 mg SL tabletIndications :acute episode of anginal pain Place 1 tablet (0.4 mg total) under the tongue every 5 (five) minutes as needed for chest pain May repeat dose q 5 min, up to 3 doses total 90 tablet 1 3 Active rosuvastatin (CRESTOR) 40 mg tabletIndications :Coronary artery disease involving [place] coronary artery of [place] heart without angina pectoris,Hyperlip idemia LDL goal <70 TAKE 1 TABLET BY MOUTH EVERY DAY 90 tablet 3 4 Active omeprazole (PriLOSEC) 20 mg capsule Take 2 capsules (40 mg total) by mouth daily 180 capsule 3 4 Active lisinopriL (PRINIVIL,ZESTRIL ) 20 mg tabletIndications :Essential hypertension Take 1 tablet (20 mg total) by mouth daily 90 tablet 3 4 Active Active Problems Problem Noted Date Diagnosed Date Decreased peripheral vision, bilateral 4 Myogenic ptosis of eyelid of both eyes 4 Lipid screening 03/04/2023 New-onset angina 03/04/2023 Vision loss, central, bilateral 03/26/2020 Assessment & Plan (05/22/2020 9:41 AM CDT): Patient's vision symptoms have improved spontaneously. He is currently on anti lipid therapy anti hypertension treatment and aspirin for cerebrovascular prophylaxis and these will be continued as scheduled. I will see him back as needed. Assessment & Plan (03/26/2020 8:41 AM CDT): Patient describes a 6 week history of initially right monocular and more recently binocular painless recurrent central scotoma lasting 15-30 minutes before spontaneous resolution. He says the episodes have ceased spontaneously ceased within the last week. Optometric examination MRI of the brain are normal, and his neurological and neurophthalmological examinations today are normal as well. I will obtain a 24 hour Holter, transthoracic echocardiogram, carotid ultrasound, erythrocyte sedimentation rate, and C-reactive protein to assess potential etiologies to explain his symptoms. He currently is on hypertension medication, anti lipid medication, and aspirin therapy. I will plan on seeing him back thereafter. Amaurosis fugax 03/26/2020 Assessment & Plan (05/22/2020 9:41 AM CDT): Patient provides history suggestive amaurosis fugax. He currently is asymptomatic on a combination of aspirin for cerebrovascular prophylaxis in addition anti lipid therapy and antihypertension treatment. I would recommend continuing his present medical regimen, and I will plan to see him back on an as-needed basis from the neurological standpoint. Assessment & Plan (03/26/2020 8:42 AM CDT): Patient describes initially a painless monocular and more recently painless binocular recurrent central scotoma. He has cerebrovascular risk factors of hypertension hypercholesterolemia and is on medication for same. I will pursue a cerebrovascular and cardiovascular evaluation and see him back thereafter. Diaphoresis 01/01/2020 Gastroesophageal reflux disease without esophagi tis 12/17/2016 Overview (12/24/2016): Gastroesophageal reflux disease without esophagitis Hyperlipidemia LDL goal <70 08/12/2016 Overview (11/04/2016): Hyperlipidemia LDL goal <70 Essential hypertension 08/12/2016 Overview (11/04/2016): Essential hypertension Cardiomyopathy, ischemic 08/12/2016 Overview (11/04/2016): Ischemic cardiomyopathy Coronary artery disease of n ative artery of [place] heart with stable angina pectoris 08/12/2016 Overview (11/04/2016): Coronary artery disease involving [place] coronary artery of [place] heart without angina pectoris Fatigue 08/12/2016 Overview (11/04/2016): Fatigue, unspecified type Dyslipidemia 12/19/2015 Overview (05/22/2020): At goal on atorvastatin Status post myocardial infarction 12/19/2015 Overview (05/22/2020): Inferior ME in 1988 status post PCI CAD (coronary artery disease) 12/19/2015 Overview (05/22/2020): Status post four-vessel coronary artery bypass grafting surgery with a ALBA to the LAD, saphenous pain graft to the first diagonal branch, saphenous vein graft to the obtuse marginal 1 branch, and saphenous vein graft to the distal right coronary artery on Hypertension 12/19/2015 Overview (05/22/2020): Controlled Resolved Problems Problem Noted Date Diagnosed Date Resolved Date Ischemic cardiomyopathy 12/22/201508/01 Overview (05/22/2020): With old inferior infarction with ejection fraction between 40-45%. Encounters Date Type Department Care Team Description 02/15/2025 8:15 AM CDT Office Visit [facility] Cardiology [address] [place] [address] Michele Sarmiento MD Coronary artery disease of [place] artery of [place] heart with stable angina pectoris (Primary Dx); Essential hypertension; Hyperlipidemia LDL goal <70; Cardiomyopathy, ischemic 02/15/2025 Orders Only [facility] Cardiology [address] [place] [address] Provider, MD Amanda from Last 3 Months Immunizations Immunization Administration Dates Next Due Tdap 07/30/2023(Deferred: Patient Ref used) Surgical History Surgery Date Site/Laterality Comments ANTERIOR CERVICAL DISCECTOMY W/ FUSION 08/01/2018 - 07/31/2019 prior to TKA CORONARY ARTERY BYPASS GRAFT 10/31/2015 - 11/29/2015 ALBA to the LAD, SVG to the 1st diagonal, SVG om 1 and SVG to distal RCA CARDIAC CATHETERIZATION CATARACT EXTRACTION W/ INTRAOCULAR LENS IMPLANT 08/01/2022 - 07/31/[address] Porter Medina CATARACT EXTRACTION W/ INTRAOCULAR LENS IMPLANT 08/01/2020 - 07/31/[address] Porter Medina TOTAL KNEE ARTHROPLASTY 04/01/2018 - 04/30/2018 Right CORONARY ANGIOPLASTY WITH STENT PLACEMENT 06/20/2023 MONO to distal SVG to PDA, continued patency of ALBA to LAD and saphenous vein graft to obtuse marginal BLEPHAROPTOSIS REPAIR 08/31/2024 Bilateral BILATERAL EXTERNAL PTOSIS Medical History Medical History Date Comments Hx Other Medical CAD, H/O ME, IC M, dyslipidemia, HTN,diverticulitis; Comments: MAF 08/12/2016 - High cholesterol Hypertension Coronary artery disease ME (myocardial infarction) (HCC) 1988 Presbyopia Cardiac complication 04/2018 During TKA with general anesthesia: 5 min of bradycardia and heart block. A 4.5 sec pause was noted. He was hemodynamically stable and this was self-limited without medications needed to treat the heart block. (per cardiology note from 12/21/2018) Ptosis Family History Medical History Relation Name Comments heart issues Brother 1 Stent Brother 2 Heart failure Father Ptosis Father Heart attack Maternal Grandmother Myocard ial infarction; Cause of : Myocardial infarction Ptosis Mother Heart disease Other Family history of Cardiovascular disease; Crohn's disease Sister Relation Name Status Comments Brother 1 Alive Brother 2 Alive Father Maternal Grandmother Mother Other Sister Alive Social History Tobacco Use Types Packs/Day Years Used Date Smoking Tobacco: Former Cigarettes Q uit: 05/30/1992 Smokeless Tobacco: Never Tobacco Cessation:Counseling Given: Not Answered Alcohol Use Standard Drinks/Week Comments Yes 1 (1 standard drink = 0.6 oz pur e alcohol) occassionally AUDIT-C Answer Date Recorded Q1: How often do you have a drink containing alcohol? Never 08/31/2024 Q2: How many drinks containi ng alcohol do you have on a typical day when you are drinking? Patient does not drink Q3: How often do you have si x or more drinks on one occasion? Never 08/31/2024 Personal Safety Answer Date Recorded Have you ever been in or are you currently in a harmful physical or emotional relationship or is someone making you feel afraid or unsafe? 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 Gender Identity Not on file Sexual Orientation Not on file Obstetrics History Last Filed Vital Signs Vital Sign Reading Time Taken Comments Blood Pressure 118/62 02/15/2025 8:04 AM CDT Pulse 68 02/15/2025 8:04 AM CDT Temperature 36.9 C (98.5 F) 08/31/2024 8:20 AM HERB GROWER Respiratory Rate 19 08/31/2024 11:30 AM HERB GROWER Oxygen Saturation 94% 02/15/2025 8:04 AM CDT Inhaled Oxygen Concentration - - Weight 89.8 kg (198 lb) 02/15/2025 8:04 AM CDT Height 182.9 cm (6') 02/15/2025 8:04 AM CDT Body Mass Index 26.85 02/15/2025 8:04 AM CDT Plan of Treatment Health Maintenance Due Date Last Done Comments Depression Screening 1950 Hepatitis C Screening 1950 DTaP/Tdap/Td Vaccine (1 - Tdap) 1959 Hepatitis B Screening 1966 Pneumococcal vaccine 65+ (1 of 2 - PCV) 1967 Zoster Vaccine (1 of 2) 1998 Abdominal Aortic Aneurysm (AAA) Screen 2013 Well Visit 65+ 2013 Influenza Vaccine (#1) 2025 Fall Risk Assessment 08/31/2025 08/31/2024, 01/01/20 20 Medical Devices Implanted Type Area Die Cast Technician Device Identifier Shelf Expiration Date Model / Serial / Lot [employer] Sawyer Angio-Seal Vip Bondek-Plus 8fr .038in 70cm Hemostatic Latex Free [id number] - [id number] - [id number] Implanted:Qty: 1 on 06/20/2023 by Fred Abbasi MD PhD at [facility] Collagen Right: Common Femoral Artery [employer] 12/09/2023 [id number] / [id number] / [id number] Other - See Comments Other - see comments Right: Knee Description:Knee replacement Plate Plate N/A: Neck Medtronic Card Vasc Surgery 2.75 X 26mm Giovanni Kendall Rx Coronary Stent [id number] - [id number] - [id number] Implanted:Qty: 1 on 06/20/2023 by Frde Abbasi MD PhD at [facility] Stent Right: Coronary Artery Medtronic Card Vasc Surgery 03/25/2026 [id number] / [id number] / [id number] Insurance MEDICARE [facility] MEDICARE [facility] BLUE CROSS MEDICARE SUPPLEMENT MEDICARE [facility] MEDICARE SUPPLEMENT Advance Directives For more information, please contact: [phone] * Full Code (Latest Code Status on File) Date Activated Date Inactivated Comments 06/20/2023 1:28 PM 06/20/2023 7:30 PM Care Teams Carbon Paper Interleafer Relationship Specialty Start Date End Date Adrianna Whitt DO PCP - General Family Medicine 03/26/20
--- OUTSIDE RECORDS SUMMARY | 2025-05-03 08:13 | XMS_ITS | Encounter Summary ---
Author Organization [facility] Address [address] [place] [id number] Care Team Providers Care Multimedia Artist Name Role Phone Ronnie Solano MD Primary Care Provider + [phone] Ronnie Solnao MD Primary Care Provider + [phone] Adrianna Whitt DO Primary Care Provider +- [phone] Encounter Details Date Type Department Care Team (Late st Contact Info) Description 11/15/2015 Orders Only [facility] ProviderAmanda MD [address] [place] [id number] Social History Tobacco Use Types Packs/Day Years Used Date Smoking Tobacco: Never Assessed Sex and Gender Information Value Date Recorded Sex Assigned at Not on file Legal Sex Male 1:04 PM [employer] Gender Identity Not on file Sexual Orientation Not on file documented as of this encounter Plan of Treatment Not on file documented as of this encounter Procedures Procedure Name Priority Date/Time Associated Diagnosis Comments CARDIOLOGY REPORT 11/15/2015 documented in this encounter Results * CARDIOLOGY REPORT (11/15/2015) Anatomical Region Laterality Modality Other Narrative 11/15/2015 Ordered by an unspecified provider. Historical Provider [facility] Final Result documented in this encounter Visit Diagnoses Not on filedocumented in this encounter Care Teams Multimedia Artist Relationship Specialty Start Date End Date Ronnie Solano MD [address] [place] [place] [address] PCP - General 10/29/16 03/25/20 Ronnie Solano MD [address] [place] [id number] PCP - General 08/12/16 10/28/16 Adrianna Whitt DO [address] [place] [address] PCP - General Family Medicine 03/26/20 documented as of this encounter
--- NOTE | 2025-05-03 14:38 | WPDPFTINT ---
PFT Procedure Performed PFT Procedure Performed Spirometry with Pre/Post Bronchodilator Plethysmography (Lung Vol) Diffusing Cap (DLCO) Flow Vol Loop PFT Interpretation This is a pulmonary function test with pre and post-bronchodilator spirometry, plethysmography and diffusing capacity. The test was performed and results interpreted in accordance with the 2019 and 2005 ATS/ERS Task Force guidelines respectively using the Global Lung Function Initiative-2012 reference equations. Patient demonstrated good effort and cooperation. Reproducibility criteria were met. The quality of the pre bronchodilator spirometry maneuver was Grade A and post bronchodilator spirometry maneuver was Grade A. Findings: Spirometry: The contour the inspiratory and expiratory flow tracing are normal. The pre bronchodilator FVC is 3.37 L, 78% predicted. The pre bronchodilator FEV1 is 2.58 L, 80% predicted. The pre bronchodilator FEV1: FVC ratio 76%. The post bronchodilator FVC is 3.37 L, representing no change. The post bronchodilator FEV1 is 2.70 L, representing a 5% increase. The post bronchodilator FEV1: FVC ratio is 80%. Plethysmography: The total lung capacity is 6.79 L, 91% predicted. The functional residual capacity is 4.54 L, 113% predicted. The residual volume is 3.41 L, 127% predicted. The residual volume: Total lung capacity ratio is 50%. Diffusing capacity: The diffusing capacity unadjusted for hemoglobin and carboxyhemoglobin is 22.4, 87% predicted. The diffusing capacity adjusted for alveolar volume is 4.44, 122% predicted. Impression: The spirometry is normal without evidence of an obstructive abnormality. There is no significant improvement after inhaling a single dose of albuterol. The increase in residual volume to total lung volume ratio is consistent with hyperinflation. The diffusing capacity is normal. There are no prior studies for comparison
== END 2025-05-03 08:08 | disposition home or self-care (01) ==
LOC: ANHPFT 08:08
PROVIDERS: PCP Family Medicine; Visit Provider Nurse Practitioner Family
DX: R06.09 Other forms of dyspnea (principal)
CPT/HCPCS: 94060; 94726; 94729